=== PATIENT | female | born 1960 | race Caucasian/White ===

== ENCOUNTER 2016-12-13 11:10 | Emergency (ER) | payer OTHER ==
--- NOTE | 2016-12-13 12:51 | RAD ---
ELBOW -RIGHT 3-4 VIEWS COMPARISON: None HISTORY: Right elbow pain for several months, worse in the past 2 weeks. No injury. FINDINGS: Views: Right elbow AP, oblique, lateral. Bones: Normal. Joint spacing: Normal. Soft tissues: Normal. IMPRESSION: 1. Normal study.
--- NOTE | 2016-12-13 13:20 | US ---
DUPLX SCAN VEIN EXT UNI RT COMPARISON: None. HISTORY: Chronic right arm pain worse over the last 2 weeks, near the medial elbow. Technique: The veins of the right upper extremity were interrogated with real-time grayscale ultrasound, color Doppler, and spectral Doppler. Vessel compressibility and flow augmentation were assessed. FINDINGS: Deep venous thrombosis: None. Common femoral vein: Normal Greater saphenous vein confluence: Normal Deep femoral vein: Normal Proximal femoral vein: Normal Mid to distal femoral vein: Normal Popliteal vein: Normal Posterior tibial veins: Normal Peroneal veins: Normal Lymphadenopathy: None IMPRESSION: Normal study. There is no deep venous thrombosis of the right upper extremity. Report was sent to the emergency department [facility] medical record system 12/13/2016 at 13:21
== END 2016-12-13 14:07 | disposition home or self-care (01) ==
LOC: ED 11:10
DX: M25.522 Pain in left elbow (principal)

== ENCOUNTER 2017-03-13 12:59 | Day surgery (SDC) | payer OTHER ==
[2017-03-13] MEDS ORDERED: LACTATED RINGERS 1,000 ML ONE (13:19)
[2017-03-13] MEDS ORDERED: IV START KIT ONE (13:19)
[2017-03-13] MEDS ORDERED: PROPOFOL 60 ML IV ONE (15:54)
[2017-03-13] MEDS ORDERED: LACTATED RINGERS 1,000 ML IV SCH (16:00)
[2017-03-13 20:22] LABS: HELICOBACTER PYLORII DETECTION NEGATIVE (NEGATIVE)
--- NOTE | 2017-03-18 09:55 | SURGPATH ---
[facility] [address] [place] [id number] Patient Name: CARLOS DOTSON MR#: [id number] : 1960 Gender: F Specimen #: [id number] Collected: 03/13/2017 Received: 03/15/2017 Reported: 03/18/2017 Submitting Phys: L[facility] Copy To Phys: [facility] - HIM Clinical History / Pre-Operative Diagnosis: RLQ; nausea Specimen Source / Surgical Procedure Performed: #1-duodenal biopsy; #2-antral biopsy; #3-esophagus at 30 cm biopsy Interpretation: 1. DUODENUM, BIOPSY: - NO PATHOLOGIC ABNORMALITY 2. ANTRUM, BIOPSY: - REACTIVE GASTROPATHY 3. ESOPHAGUS AT 30 CM, BIOPSY: - NO PATHOLOGIC ABNORMALITY Electronically Signed Out Clark Ruiz M.D. Gross Description: #1 The specimen is received in a formalin filled container labeled with the patient's name and "duodenal biopsy". Two smith biopsies are 0.3 and 0.4 cm. Totally embedded in cassette #1. #2 The specimen is received in a formalin filled container labeled with the patient's name and "antral biopsy". Two smith biopsies are each 0.5 cm. Totally embedded in cassette #2. #3 The specimen is received in a formalin filled container labeled with the patient's name and "esophageal biopsy at 30 cm". Three tafoya biopsies are 0.1, 0.2 and 0.3 cm. Totally embedded in cassette #3. Farhan Anaya Microscopic Description: 1. Sections show normal duodenum without inflammatory or neoplastic process. 2. Sections show noninflamed, reactive antrum representing reactive gastropathy. 3. Sections show normal esophageal squamous mucosa. 1: 39943 2: 04271 3: 09587 K31.89
== END 2017-03-13 16:55 | disposition home or self-care (01) ==
LOC: SDC 12:59
PROVIDERS: ATTEND Surgery
PROC: 0DB58ZX Excision of Esophagus, Via Natural or Artificial Opening Endoscopic, Diagnostic (ICD-10-PCS; principal; 2017-03-13)
DX: K29.70 Gastritis, unspecified, without bleeding (principal); K29.80 Duodenitis without bleeding; K21.0 Gastro-esophageal reflux disease with esophagitis; K31.9 Disease of stomach and duodenum, unspecified; E03.9 Hypothyroidism, unspecified; K44.9 Diaphragmatic hernia without obstruction or gangrene; G35 Multiple sclerosis; Z88.5 Allergy status to narcotic agent; Z91.030 Bee allergy status; Z86.010 Personal history of colon polyps; Z87.891 Personal history of nicotine dependence; Z79.899 Other long term (current) drug therapy
CPT/HCPCS: 87081; 43239; J7120